=== PATIENT | female | born 1960 | race Two or more races ===

== ENCOUNTER 2021-01-24 12:53 | Outpatient (CLI) | payer OTHER | END 2021-01-24 13:02 | disposition home or self-care (01) | LOC: RAD 12:53 | PROVIDERS: ATTEND Podiatrist Foot Surgery | DX: M25.561 Pain in right knee (principal); M89.8X8 Other specified disorders of bone, other site ==

== ENCOUNTER 2021-02-28 06:00 | Day surgery (SDC) | payer OTHER | END 2021-02-28 09:45 | disposition home or self-care (01) | LOC: AMB-ENDOS 06:00 | PROVIDERS: ATTEND Surgery | DX: K63.5 Polyp of colon (principal); K64.8 Other hemorrhoids; Z20.822 Contact with and (suspected) exposure to COVID-19 ==

== ENCOUNTER 2023-05-22 07:48 | Outpatient (CLI) | payer OTHER | END 2023-05-22 16:36 | disposition home or self-care (01) | LOC: LAB 07:48 | PROVIDERS: ATTEND Urology | DX: C64.2 Malignant neoplasm of left kidney, except renal pelvis (principal) ==

== ENCOUNTER 2023-05-22 08:18 | Outpatient (CLI) | payer OTHER | END 2023-05-22 08:27 | disposition home or self-care (01) | LOC: MRI 08:18 | PROVIDERS: ATTEND Urology | DX: C64.2 Malignant neoplasm of left kidney, except renal pelvis (principal); I89.0 Lymphedema, not elsewhere classified | CPT/HCPCS: 72197; 74183 ==